=== PATIENT | male | born 1960 | race Caucasian/White ===

== ENCOUNTER 2017-05-22 20:02 | Emergency (ER) | payer OTHER ==
[~2017-05-22] VITALS: Ht 167.6 cm; Wt 87.5 kg
[2017-05-22 21:58] VITALS: Ht 167.6 cm; Wt 87.5 kg
[2017-05-22] MEDS ORDERED: KETOROLAC 30 MG INJ IM STA (23:19)
[2017-05-22] MEDS ORDERED: DEXAMETHASONE 10 MG/ML 1 ML INJ IM ONE (23:30)
[2017-05-23] MEDS ORDERED: HYDR-906 PO (00:06)
[2017-05-23] MEDS ORDERED: CYCL-319 PO (00:06)
[2017-05-23] MEDS ORDERED: NAPR-260 PO (00:06)
--- NOTE | 2017-05-23 02:53 | RADRPT ---
PROCEDURE: CT Lumbar Spine. CLINICAL INDICATION: Low back pain TECHNIQUE: The study was performed on a multidetector CT scanner. Spiral axial 1 mm images were o btained through the lumbar spine and reformatted at 2.5 mm slice thickness. Sagittal and coronal ref ormations were created from the raw axial data. The images were reviewed on a PACS workstation. The administered radiation dose was CTDI vol = 25.29 mGy, DLP = 904.45 mGy-cm. One or more the following dose reduction techniques were utilized: Automated exposure control, adjus tment of the mA and / or kV according to patient's size, or use of iterative reconstruction techniqu e. COMPARISON: No prior studies are available for comparison. FINDINGS: The vertebral bodies demonstrate normal height, alignment and osseous mineralization. Multiple Schmo rl's nodes in thoracolumbar spine. Calcification in abdominal aorta and bilateral proximal renal arteries. T12-L1: The disc and neuroforamina are unremarkable. L1-L2: Disc space narrowing, diffuse disc bulge. L2-L3: The disc and neuroforamina are unremarkable. L3-L4: Diffuse disc bulge, vertebral body osteophyte formation, mild to moderate right foraminal chino nosis and mild to moderate left foraminal stenosis. L4-L5: Mild diffuse disc bulge, vertebral body osteophyte formation, mild facet and ligamentum flavu m hypertrophy, mild central spinal stenosis and moderate right foraminal stenosis and mild left fora reese stenosis. L5-S1: Vertebral body osteophyte formation and mild bilateral foraminal stenosis. Vas deferens calcification. IMPRESSION: Degenerative changes. Multiple Schmorl's nodes in thoracolumbar spine. Mild central spinal stenosis at L4-5. Foraminal stenosis as noted above. Please see above. RPTAT: HJES .Carlos Angel MD, MD Date Time Electronically viewed and signed by .Carlos Angel MD, on 05/23/2017 02:52 .S/
--- NOTE | 2017-05-23 19:03 | ERD ---
ER Documentation Chief Complaint Chief Complaint WORSENING BACK PAIN TONIGHT, +RECTAL PAIN. HPI Patient is a 57-year-old male presenting to the emergency department with complaints of low back pain intermittently for the past 2 weeks. He states pain is worse with ambulation. He reports radiation down his bilateral legs. He is also had some rectal pain. He denies loss of bowel or bladder function. He has still been able to walk but with some difficulty. He denies fevers, chills, or other symptoms currently. ROS All systems reviewed and are negative except as per history of present illness. Medications Home Meds Active Scripts Cyclobenzaprine Hcl* (Cyclobenzaprine Hcl*) 10 Mg Tablet, 10 MG PO TID, #15 TAB Prov:SHANNON MURDOCK PA-C 05/23/17 Hydrocodone/Acetaminophen ([place] 5-325 Tablet) 1 Each Tablet, 1 TAB PO Q6H Y for PAIN, #7 TAB Prov:SHANNON MURDOCK PA-C 05/23/17 Naproxen* (Naprosyn*) 500 Mg Tablet, 500 MG PO BID Y for PAIN AND/OR INFLAMMATION, #30 TAB Prov:SHANNON MURDOCK PA-C 05/23/17 Allergies Allergies: Uncoded Allergies: PENICILLIN (Allergy, Mild, 05/22/17) PMhx/Soc History of Surgery: No Anesthesia Reaction: No Hx Neurological Disorder: No Hx Respiratory Disorders: No Hx Cardiac Disorders: Yes (HTN) Hx Psychiatric Problems: No Hx Miscellaneous Medical Probl: Yes (DM, high cholesterol) Hx Alcohol Use: Yes Hx Substance Use: No Hx Tobacco Use: No Smoking Status: Never smoker Physical Exam Vitals Vital Signs Date Time Temp Pulse Resp B/P Pulse Ox O2 Delivery O2 Flow Rate FiO2 05/22/17 21:58 98.9 96 20 117/71 98 Physical Exam Const: Nontoxic, well-appearing male in no acute distress. Head: Atraumatic Eyes: Normal Conjunctiva ENT: Normal External Ears, Nose and Mouth. Skin: No petechiae or rashes Back: Tenderness to palpation of the paraspinal muscles of the lumbar spine. Positive straight leg raise bilaterally. RECTAL:Verbal Consent Obtained Sphincter tone is normal. No external hemorrhoids seen. No evidence of anal fissure or internal hemorrhoids. Non- tender to digital rectal palpation. No masses palpated. Ext: No cyanosis, or edema Neur: Awake and alert Psych: Normal Mood and Affect Results 24 hrs Current Medications Medications (Trade) Dose Ordered Sig/Cande Route PRN Reason Start Time Stop Time Status Last Admin Dose Admin Ketorolac Tromethamine (Toradol) 30 mg ONCE STAT IM 05/22/17 23:19 05/22/17 23:23 DC 05/22/17 23:47 Dexamethasone (Decadron) 10 mg ONCE ONCE IM 05/22/17 23:30 05/22/17 23:31 DC 05/22/17 23:47 Procedures/MDM 57-year-old male presents to the emergency department with complaints of low back pain. CT was ordered and there were no findings concerning for cauda equina or other emergencies. The patient was given copies of his imaging. He was treated in the department and he was feeling improved prior to discharge. He was discharged home with prescriptions for pain management. He was advised to return immediately for any new or worsening symptoms. Low suspicion for epidural abscess, cauda equina, or other life-threatening pathology. He is to follow-up with his primary care physician within the next 1-2 days. PROCEDURE: CT Lumbar Spine. CLINICAL INDICATION: Low back pain TECHNIQUE: The study was performed on a multidetector CT scanner. Spiral axial 1 mm images were obtained through the lumbar spine and reformatted at 2.5 mm slice thickness. Sagittal and coronal reformations were created from the raw axial data. The images were reviewed on a PACS workstation. The administered radiation dose was CTDI vol = 25.29 mGy, DLP = 904.45 mGy-cm. One or more the following dose reduction techniques were utilized: Automated exposure control, adjustment of the mA and / or kV according to patient's size, or use of iterative reconstruction technique. COMPARISON: No prior studies are available for comparison. FINDINGS: The vertebral bodies demonstrate normal height, alignment and osseous mineralization. Multiple Schmorl's nodes in thoracolumbar spine. Calcification in abdominal aorta and bilateral proximal renal arteries. T12-L1: The disc and neuroforamina are unremarkable. L1-L2: Disc space narrowing, diffuse disc bulge. L2-L3: The disc and neuroforamina are unremarkable. L3-L4: Diffuse disc bulge, vertebral body osteophyte formation, mild to moderate right foraminal stenosis and mild to moderate left foraminal stenosis. L4-L5: Mild diffuse disc bulge, vertebral body osteophyte formation, mild facet and ligamentum flavum hypertrophy, mild central spinal stenosis and moderate right foraminal stenosis and mild left foraminal stenosis. L5-S1: Vertebral body osteophyte formation and mild bilateral foraminal stenosis. Vas deferens calcification. IMPRESSION: Degenerative changes. Multiple Schmorl's nodes in thoracolumbar spine. Mild central spinal stenosis at L4-5. Foraminal stenosis as noted above. Please see above. RPTAT: HJES .Carlos Angel MD, Date Time Electronically viewed and signed by .Carlos Angel MD, on 05/23/2017 02:52 Departure Diagnosis: Primary Impression: Back pain with sciatica Condition: Fair Patient Instructions: Back Pain W/ Sciatica [facility] Usted se collins hecho un examen mdico de control que le indica que no est en columba condicin que requiera tratamiento urgente en el Departamento de Emergencia. Un estudio ms profundo y el tratamiento de andersen condicin pueden esperar sin ningn riesgo hasta que usted sea atendida/o en el consultorio de andersen mdico o columba cl harry. Es responsabilidad suya arreglar columba yumi para el seguimiento del chelsey. MANEJO DE CONDICIONES NO URGENTES EN EL FUTURO 1) Si usted tiene un mdico de atencin primaria: Usted debera llamar a andersen mdico de atencin primaria antes de venir al departamento de emergencia. Despus de las horas de consultorio, andersen doctor o andersen asociado/a est disponible por telfono. El mdico o enfermero de aime en el servicio telefnico puede asesorarle por gracie medio para atender el problema, o chelsey contrario se puede programar columba yumi. 2) Si usted no tiene un mdico de atencin primaria: Llame al mdico o clnica de referencia que aparece abajo shukri las horas de consultorio para hacer columba yumi para que le vean. CLINICAS: [facility] [id number] [facility] [phone] [facility] [phone] [place] [address] [phone] [place] [address] [phone] [facility] [phone] Additional Instructions: No mas mejor en 2-3 merida, regresar. Mas peor en 24 horas, regresear rapidamente. Ir a doctor primario en 1-2 merida. Usar instrucciones cuando sam medicamento. SHANNON MURDOCK PA-C May 23, 2017 19:03
== END 2017-05-23 03:36 | disposition home or self-care (01) ==
LOC: FTE 20:02
DX: M54.42 Lumbago with sciatica, left side (principal); M54.41 Lumbago with sciatica, right side; I10 Essential (primary) hypertension; E11.9 Type 2 diabetes mellitus without complications
CPT/HCPCS: 72131; 96372; 99285; J1100; J1885

== ENCOUNTER 2017-06-02 21:43 | Emergency (ER) | payer OTHER ==
[~2017-06-02] VITALS: Ht 167.6 cm; Wt 85.1 kg
[~2017-06-02 21:43] MED LIST: CYCL-319 PO; HYDR-906 PO; NAPR-260 PO
[2017-06-02 21:57] VITALS: Ht 167.6 cm; Wt 85.1 kg
--- NOTE | 2017-06-03 03:02 | ERD ---
ER Documentation Chief Complaint Chief Complaint epigastric pain radiating to mid abdomen to back. with N x3 days HPI The patient is 57-year-old male, presenting to the ER because of epigastric abdominal pain, nausea, no vomiting for 3 days intermittently. The pain is worse with eating, complains of constipation, denies dysuria. he does not smoke nor drink Past medical history: Hypertension, diabetes mellitus, dyslipidemia, chronic low back pain Surgical history: Tonsillectomy ROS All systems reviewed and are negative except as per history of present illness. Medications Home Meds Active Scripts Pantoprazole* (Protonix*) 40 Mg Tablet.dr, 40 MG PO DAILY, #20 TAB Prov:JO BECK MD 06/03/17 Cyclobenzaprine Hcl* (Cyclobenzaprine Hcl*) 10 Mg Tablet, 10 MG PO TID, #15 TAB Prov:SHANNON MURDOCK PA-C 05/23/17 Hydrocodone/Acetaminophen ([place] 5-325 Tablet) 1 Each Tablet, 1 TAB PO Q6H Y for PAIN, #7 TAB Prov:SHANNON MURDOCK PA-C 05/23/17 Naproxen* (Naprosyn*) 500 Mg Tablet, 500 MG PO BID Y for PAIN AND/OR INFLAMMATION, #30 TAB Prov:SHANNON MURDOCK PA-C 05/23/17 Allergies Allergies: Uncoded Allergies: PENICILLIN (Allergy, Mild, 05/22/17) PMhx/Soc History of Surgery: No Anesthesia Reaction: No Hx Neurological Disorder: No Hx Respiratory Disorders: No Hx Cardiac Disorders: Yes (HTN) Hx Psychiatric Problems: No Hx Miscellaneous Medical Probl: Yes (DM, high cholesterol) Hx Alcohol Use: Yes Hx Substance Use: No Hx Tobacco Use: No Physical Exam Vitals Vital Signs Date Time Temp Pulse Resp B/P Pulse Ox O2 Delivery O2 Flow Rate FiO2 06/03/17 03:59 98.1 81 18 130/81 99 Room Air 06/02/17 21:57 98.1 100 18 136/83 98 Physical Exam Const: No acute distress. Head: Atraumatic. Eyes: Normal Conjunctiva. ENT: Normal External Ears, Nose and Mouth. Neck: Full range of motion. No meningismus. Resp: Clear to auscultation bilaterally. Cardio: Regular rate and rhythm. Abd: Soft, non distended, normal bowel sounds, minimal epigastric discomfort, no right lower quadrant, epigastric, CVA tenderness Skin: No petechiae or rashes. Back: No midline or flank tenderness. Ext: No cyanosis, or edema. Neur: Awake and alert. No focal deficit Psych: Normal Mood and Affect. Result Diagram: 06/03/175 06/03/17314 Results 24 hrs Laboratory Tests Test 06/03/17 03:15 06/03/17 03:36 White Blood Count 7.310^3/ul Red Blood Count 4.9410^6/ul Hemoglobin 13.9g/dl Hematocrit 41.2% Mean Corpuscular Volume 83.4fl Mean Corpuscular Hemoglobin 28.1pg Mean Corpuscular Hemoglobin Concent 33.7g/dl Red Cell Distribution Width 12.7% Platelet Count 08792^3/UL Mean Platelet Volume 9.9fl Neutrophils % 48.9% Lymphocytes % 31.4% Monocytes % 15.4% Eosinophils % 2.5% Basophils % 1.0% Nucleated Red Blood Cells % 0.0/100WBC Neutrophils # 3.510^3/ul Lymphocytes # 2.310^3/ul Monocytes # 1.110^3/ul Eosinophils # 0.210^3/ul Basophils # 0.110^3/ul Nucleated Red Blood Cells # 0.010^3/ul Sodium Level 137mmol/L Potassium Level 4.7mmol/L Chloride Level 97mmol/L Carbon Dioxide Level 30mmol/L Anion Gap 15 Blood Urea Nitrogen 20mg/dl Creatinine 0.89mg/dl Glucose Level 108mg/dl Calcium Level 10.4mg/dl Total Bilirubin 0.3mg/dl Direct Bilirubin 0.00mg/dl Indirect Bilirubin 0.3mg/dl Aspartate Amino Transf (AST/SGOT) 28IU/L Alanine Aminotransferase (ALT/SGPT) 50IU/L Alkaline Phosphatase 81IU/L Total Protein 7.5g/dl Albumin 4.2g/dl Globulin 3.30g/dl Albumin/Globulin Ratio 1.27 Lipase 139U/L Bedside Urine pH (LAB) 5.5 Bedside Urine Protein (LAB) Negative Bedside Urine Glucose (UA) Negative Bedside Urine Ketones (LAB) 1+ Bedside Urine Blood Negative Bedside Urine Nitrite (LAB) Negative Bedside Urine Leukocyte Esterase (L Negative Current Medications Medications (Trade) Dose Ordered Sig/Cande Route PRN Reason Start Time Stop Time Status Last Admin Dose Admin Ketorolac Tromethamine (Toradol) 30 mg ONCE STAT IV 06/03/17 03:07 06/03/17 03:09 DC 06/03/17 03:19 Procedures/MDM [place] [id number] Radiology Main Line: [phone] DIAGNOSTIC IMAGING REPORT Patient: LALITO MERAZ : 1960 Age: 57 Sex: M MR #: [id number] DOS: 06/03/17 0307 Ordering MD: JO BECK MD Location: E/R Room/Bed: PROCEDURE: US Abdomen. CLINICAL INDICATION: Abdominal pain. TECHNIQUE: Multiple real-time images were acquired of the patient's abdomen and retroperitoneum utilizing a high resolution transducer. COMPARISON: None. FINDINGS: There is fatty infiltration of the liver. No focal of an lesions are seen. The liver measures 16.7 cm. Gallbladder sludge is present without evidence of cholelithiasis. The gallbladder wall is mildly thickened measuring 3.2 mm. No evidence of a positive sonographic Amaya's sign. No intra or extrahepatic biliary dilatation is seen. The common bile duct measures 5.4 mm in maximal dimension. The pancreas is obscured by bowel gas. The right kidney measures 11.6 cm in long dimension. Multiple echogenic foci are present within the kidney measuring up to 6 mm and consistent with nonobstructing calculi. There are no perinephric fluid collections. IMPRESSION: 1. Gallbladder sludge without evidence of cholelithiasis or positive sonographic Amaya's sign. Mild gallbladder wall thickening is present measuring 3.2 mm. 2. Nonobstructing right renal calculi. 3. Fatty infiltration of the liver. RPTAT: HRSR Physician Shila Date Time Electronically viewed and signed by Physician Shila on 06/03/2017 04 :35 RR/ CC: JO BECK MD MEDICAL MAKING DECISION: The patient is a 57-year-old, presenting with acute epigastric abdominal pain of unclear etiology. He was treated with Toradol 30 IV for pain with good response. The differential diagnoses considered include but are not limited to cholelithiasis, cholecystitis, cystitis, pancreatitis, hepatitis, gastritis, peptic ulcer disease, gastric ulcer, appendicitis, diverticulitis, cholangitis, choledocholithiasis, partial small bowel obstruction. Departure Diagnosis: Primary Impression: Epigastric abdominal pain Condition: Good Comments He was discharged with Protonix I discussed the findings with the patient. I advised the patient to follow-up with the primary physician in about 1-2 days, sooner if needed and return if any concern. Disclaimer: Inadvertent spelling and grammatical errors are likely due to EHR/ dictation software use and do not reflect on the overall quality of patient care. Also, please note that the electronic time recorded on this note does not necessarily reflect the actual time of the patient encounter. JO BECK MD Jun 03, 2017 03:02
[2017-06-03] MEDS ORDERED: KETOROLAC 30 MG INJ IV STA (03:07)
[2017-06-03 03:59] VITALS: BP 130/81; PULSE 81; RESP 18; TEMP 98.1
--- NOTE | 2017-06-03 04:36 | RADRPT ---
PROCEDURE: US Abdomen. CLINICAL INDICATION: Abdominal pain. TECHNIQUE: Multiple real-time images were acquired of the patient's abdomen and retroperitoneum ut ilizing a high resolution transducer. COMPARISON: None. FINDINGS: There is fatty infiltration of the liver. No focal of an lesions are seen. The liver measures 16.7 c m. Gallbladder sludge is present without evidence of cholelithiasis. The gallbladder wall is mildly thickened measuring 3.2 mm. No evidence of a positive sonographic Amaya's sign. No intra or extrahe patic biliary dilatation is seen. The common bile duct measures 5.4 mm in maximal dimension. The p ancreas is obscured by bowel gas. The right kidney measures 11.6 cm in long dimension. Multiple echogenic foci are present within th e kidney measuring up to 6 mm and consistent with nonobstructing calculi. There are no perinephric fluid collections. IMPRESSION: 1. Gallbladder sludge without evidence of cholelithiasis or positive sonographic Amaya's sign. Mil d gallbladder wall thickening is present measuring 3.2 mm. 2. Nonobstructing right renal calculi. 3. Fatty infiltration of the liver. RPTAT: HRSR Physician Shila Date Time Electronically viewed and signed by Physician Shila on 06/03/2017 04:35 RR/
[2017-06-03] MEDS ORDERED: PANT40TA3 PO (05:18)
== END 2017-06-03 05:35 | disposition home or self-care (01) ==
LOC: E/R 21:43
DX: R10.13 Epigastric pain (principal); E11.9 Type 2 diabetes mellitus without complications; I10 Essential (primary) hypertension
CPT/HCPCS: 36415; 76705; 80053; 81003; 83690; 85025; 96374; 99285; J1885